=== PATIENT | male | born 1955 | race Caucasian/White ===

== ENCOUNTER 2018-07-01 19:27 | Outpatient (CLI) | END 2018-07-01 19:49 | disposition short-term general hospital (02) | LOC: AMBL 19:27 | PROVIDERS: ATTEND Internal Medicine Geriatric Medicine | DX: R55 Syncope and collapse (principal); R41.82 Altered mental status, unspecified; I10 Essential (primary) hypertension; R53.1 Weakness; R00.0 Tachycardia, unspecified; M25.511 Pain in right shoulder; S09.93XA Unspecified injury of face, initial encounter; S50.311A Abrasion of right elbow, initial encounter ==